=== PATIENT | male | born 1975 | race African-American/Black ===

== ENCOUNTER 2019-08-24 15:28 | Inpatient (IN) ==
[2019-08-24] MEDS ORDERED: MORPHINE 4 MG/1 ML VIAL IV STA (18:55)
[2019-08-24] MEDS ORDERED: hydrALAZINE 20 MG/1 ML VIAL IV STA (18:55)
[2019-08-24] MEDS ORDERED: ONDANSETRON 4 MG/2 ML VIAL IV STA (18:55)
[2019-08-24] MEDS ORDERED: FUROSEMIDE 100 MG/10 ML VIAL IV STA (18:55)
[2019-08-24] MEDS ORDERED: NITROGLYCERIN 2% OINT 1 INCH/GM PACK TOP STA (18:55)
[2019-08-24 19:33] LABS: Basophils % 0.7 % (0.0-0.8); Eosinophils # 0.1 10*3/uL (0.0-0.87); Eosinophils % 1.5 % (0.00-10.9); Hematocrit 27.7 VOL% (42.0-52.0); Immature Granulocytes % 0.3 %; Immature Granulocytes Absolute 0.02 #; Lymphocytes # 0.9 10*3/uL (1.4-4.0); Lymphocytes % 15.7 % (21.2-54.2); Mean Corpuscular HGB Conc 28.9 GM/DL (32-36); Mean Corpuscular Volume 69.1 FL (87-102); Mean Platelet Volume 10.7 FL (9.6-12.0); Monocytes % 10.2 % (1.7-12.7); Neutrophils % 71.6 % (38.7-73.9); Platelet Count 286 T/CUMM (130-400); Red Blood Count 4.01 MC/CUMM (3.8-5.5); Red Cell Distribution Width 20.3 % (9.3-17.3)
[2019-08-24 19:44] LABS: INR 1.2; PT Patient Result 12.7 SECS (9.6-12.2)
[2019-08-24 19:51] LABS: Alanine Aminotransferase 21 U/L (16-61); Albumin 2.8 G/DL (3.4-5.0); Alkaline Phosphatase 103 U/L (45-117); Aspartate Amino Transferase 17 U/L (0-37); Blood Urea Nitrogen 20 MG/DL (7-18); Calcium 8.4 MG/DL (8.5-10.1); Estimated Glom Filtration Rate 96 ML/MIN; Glucose 99 MG/DL (74-106); Osmolality,Calculated 277.7 MOS/KG (273-304); Total Protein 7.3 G/DL (6.4-8.3); Troponin I 0.038 NG/ML (0.00-0.045)
[2019-08-24 20:52] LABS: Apearance,Urine CLEAR (Clear); Bacteria,Urine Occasional /HPF (Few); Bilirubin,Urine Negative (Negative); Blood, Urine Negative (Negative); Glucose,Urine (UA) Negative (Negative); Hyaline Casts,Urine 3 /LPF (0-3); Ketones,Urine Negative (Negative); Mucus,Urine Occasional /LPF (Occasional); Nitrite,Urine Negative (Negative); Protein,Urine Negative; Sperm,Urine Occasional /HPF (Negative); Squamous Epithelial Cell,Urine Occasional /HPF (0-10); Urine Color Straw (Yellow); Urine Specific Gravity 1.006 (1.001-1.035); Urine Urobilinogen < 2.0 EU/DL (0.2-1.0); WBC,Urine 4 /HPF (0-6)
[2019-08-24 20:55] LABS: Barbiturates Screen,Urine Negative (Negative); Benzodiazepines Screen,Urine Negative (Negative); Cannabinoid Screen,Urine Negative (Negative); Opiate Screen,Urine Negative (Negative); Phencyclidine Screen,Urine Negative (Negative)
[2019-08-24] MEDS ORDERED: niCARdipine 25 MG/10 ML VIAL IV ONE (22:01)
[2019-08-24] MEDS: niCARdipine INJ 25 MG in SODIUM CHLORIDE 0.9% 240 ML IV PRN (22:10)
[2019-08-24] MEDS ORDERED: ACETAMINOPHEN 325 MG TABLET PO PRN (23:20)
[2019-08-24] MEDS ORDERED: MAGNESIUM SULF RIDER 2 GM in PREMIX 1 EACH IV PRN (23:20)
[2019-08-24] MEDS ORDERED: ALBUTEROL 2.5 MG/3 ML NEB RESP TX PRN (23:20)
[2019-08-24] MEDS ORDERED: ONDANSETRON 4 MG/2 ML VIAL IV PRN (23:20)
[2019-08-24] MEDS ORDERED: MAGNESIUM SULF RIDER 4 GM in PREMIX 1 EACH IV PRN (23:20)
[2019-08-25] MEDS: niCARdipine INJ 25 MG in SODIUM CHLORIDE 0.9% 240 ML IV PRN (01:41)
[2019-08-25] MEDS ORDERED: niCARdipine INJ 50 MG in SODIUM CHLORIDE 0.9% 480 ML IV PRN (02:07)
[2019-08-25 05:04] LABS: Basophils % 0.6 % (0.0-0.8); Eosinophils # 0.1 10*3/uL (0.0-0.87); Eosinophils % 1.7 % (0.00-10.9); Hematocrit 26.5 VOL% (42.0-52.0); Hemoglobin 7.9 GM/DL (14.0-18.0); Immature Granulocytes % 0.3 %; Immature Granulocytes Absolute 0.02 #; Lymphocytes # 1.1 10*3/uL (1.4-4.0); Lymphocytes % 15.1 % (21.2-54.2); Mean Corpuscular HGB Conc 29.8 GM/DL (32-36); Mean Corpuscular Volume 68.1 FL (87-102); Neutrophils % 70.3 % (38.7-73.9); Platelet Count 310 T/CUMM (130-400); Red Blood Count 3.89 MC/CUMM (3.8-5.5); Red Cell Distribution Width 19.8 % (9.3-17.3); White Blood Count 7.2 T/CUMM (4-12)
[2019-08-25 05:23] LABS: Hypochromasia 1+; Platelet Estimate Adequate; Target Cells Few
[2019-08-25 05:46] LABS: Albumin 2.8 G/DL (3.4-5.0); Bilirubin,Total 1.2 MG/DL (0.2-1.0); Calcium 8.6 MG/DL (8.5-10.1); Ferritin 17.2 ng/ml (26-388); Osmolality,Calculated 278.5 MOS/KG (273-304); Total Protein 7.2 G/DL (6.4-8.3)
[2019-08-25 06:15] LABS: Folate 14.1 NG/ML (5.4-24.0)
[2019-08-25 07:50] LABS: Vitamin B12 513 PG/ML (211-911)
[2019-08-25] MEDS: FUROSEMIDE 40 MG/4 ML VIAL IV SCH ×2 (08:09→15:37)
[2019-08-25] MEDS: PANTOPRAZOLE 40 MG TABLET PO SCH (08:09)
[2019-08-25] MEDS: ISOSORBIDE DINITRATE 20 MG TABLET PO SCH (08:10)
[2019-08-25] MEDS: POTASSIUM CHLORIDE 20 MEQ TABLET PO SCH ×3 (09:20→21:25)
[2019-08-25 10:15] LABS: Hemoglobin A1 (Alkaline) 98.3 % (96.5-98.5); Hemoglobin A2 (Alkaline) 1.7 % (1.5-3.5)
[2019-08-25] MEDS: lisinopriL 10 MG TABLET PO SCH (10:28)
[2019-08-25 11:51] LABS: Sedimentation Rate-Westergren 28 MM/HR (0-15)
[2019-08-25] MEDS ORDERED: POTASSIUM CHLORIDE RIDER 10 MEQ in PREMIX 1 EACH IV PRN (12:36)
[2019-08-25] MEDS: ASPIRIN EC 81 MG TABLET PO SCH (13:18)
[2019-08-25] MEDS: CLOPIDOGREL 75 MG TABLET PO SCH (13:18)
[2019-08-26] MEDS ORDERED: hydrALAZINE 20 MG/1 ML VIAL IV PRN (00:56)
[2019-08-26] MEDS: hydrALAZINE 20 MG/1 ML VIAL IV PRN ×5 (01:26→18:24)
[2019-08-26 04:29] LABS: Basophils # 0.1 10*3/uL (0.0-0.2); Basophils % 0.9 % (0.0-0.8); Eosinophils # 0.1 10*3/uL (0.0-0.87); Eosinophils % 2.4 % (0.00-10.9); Hematocrit 28.3 VOL% (42.0-52.0); Hemoglobin 8.2 GM/DL (14.0-18.0); Immature Granulocytes % 0.4 %; Immature Granulocytes Absolute 0.02 #; Lymphocytes # 1.3 10*3/uL (1.4-4.0); Lymphocytes % 23.8 % (21.2-54.2); Mean Corpuscular Volume 69.2 FL (87-102); Monocytes % 12.6 % (1.7-12.7); Neutrophils % 59.9 % (38.7-73.9); Platelet Count 306 T/CUMM (130-400); Red Blood Count 4.09 MC/CUMM (3.8-5.5); Red Cell Distribution Width 20.5 % (9.3-17.3); White Blood Count 5.5 T/CUMM (4-12)
[2019-08-26 04:44] LABS: Calcium 8.9 MG/DL (8.5-10.1); Osmolality,Calculated 277.5 MOS/KG (273-304)
[2019-08-26 04:51] LABS: Risk Ratio 2.16; VLDL CHOLESTEROL 8.6 MG/DL
[2019-08-26] MEDS ORDERED: diphenhydrAMINE CAP 25 MG CAPSULE PO ONE (06:00)
[2019-08-26] MEDS ORDERED: DIAZEPAM 5 MG TABLET PO ONE (06:00)
[2019-08-26] MEDS ORDERED: HEPARIN/NACL 0.9% 2 UNITS/ML 1,000 ML IV ONE (06:38)
[2019-08-26] MEDS: SODIUM CHLORIDE 0.9% 1,000 ML IV SCH ×3 (06:40→23:03)
[2019-08-26] MEDS ORDERED: HEPARIN/NACL 0.9% 2 UNITS/ML 500 ML IV ONE (06:46)
[2019-08-26] MEDS ORDERED: LIDOCAINE 1% 20 ML VIAL ONE (06:52)
[2019-08-26] MEDS ORDERED: MIDAZOLAM 2 MG/2 ML VIAL ONE (06:53)
[2019-08-26] MEDS ORDERED: fentaNYL 100 MCG/2 ML VIAL ONE (06:53)
[2019-08-26] MEDS ORDERED: NITROGLYCERIN 2% OINT 1 INCH/GM PACK TOP ONE (07:11)
[2019-08-26] MEDS ORDERED: hydrALAZINE 20 MG/1 ML VIAL ONE (07:18)
[2019-08-26] MEDS ORDERED: cloNIDine 0.1 MG TABLET ONE (07:23)
[2019-08-26 07:42] LABS: % Iron Saturation 4.3 % (18-50); Ferritin 20.2 ng/ml (26-388)
[2019-08-26] MEDS ORDERED: ENOXAPARIN 40 MG/0.4 ML SYRINGE SUBCUT SCH (08:00)
[2019-08-26] MEDS: ASPIRIN EC 81 MG TABLET PO SCH (08:36)
[2019-08-26] MEDS: ISOSORBIDE DINITRATE 20 MG TABLET PO SCH (08:36)
[2019-08-26] MEDS: PANTOPRAZOLE 40 MG TABLET PO SCH (08:36)
[2019-08-26] MEDS: FUROSEMIDE 40 MG/4 ML VIAL IV SCH ×2 (08:36→15:46)
[2019-08-26] MEDS: lisinopriL 10 MG TABLET PO SCH (08:37)
[2019-08-26] MEDS: MORPHINE 4 MG/1 ML VIAL IV PRN ×4 (08:37→18:02)
[2019-08-26] MEDS: CLOPIDOGREL 75 MG TABLET PO SCH (08:37)
[2019-08-26] MEDS: LOSARTAN 50 MG TABLET PO SCH (09:56)
[2019-08-27] MEDS: ENOXAPARIN 40 MG/0.4 ML SYRINGE SUBCUT SCH (02:45)
[2019-08-27] MEDS: hydrALAZINE 20 MG/1 ML VIAL IV PRN (04:08)
[2019-08-27 05:37] LABS: Basophils % 0.8 % (0.0-0.8); Eosinophils # 0.1 10*3/uL (0.0-0.87); Eosinophils % 2.7 % (0.00-10.9); Hematocrit 27.6 VOL% (42.0-52.0); Hemoglobin 8.1 GM/DL (14.0-18.0); Immature Granulocytes % 0.2 %; Immature Granulocytes Absolute 0.01 #; Lymphocytes # 1.1 10*3/uL (1.4-4.0); Lymphocytes % 20.7 % (21.2-54.2); Mean Corpuscular HGB Conc 29.3 GM/DL (32-36); Mean Platelet Volume 10.7 FL (9.6-12.0); Monocytes % 13.3 % (1.7-12.7); Neutrophils % 62.3 % (38.7-73.9); Platelet Count 296 T/CUMM (130-400); Red Cell Distribution Width 20.2 % (9.3-17.3); White Blood Count 5.1 T/CUMM (4-12)
[2019-08-27 05:56] LABS: Hypochromasia 2+; Platelet Estimate Adequate
[2019-08-27 06:28] LABS: Calcium 8.5 MG/DL (8.5-10.1); Osmolality,Calculated 274.8 MOS/KG (273-304)
[2019-08-27] MEDS ORDERED: amLODIPine 5 MG TABLET PO SCH (09:00)
[2019-08-27] MEDS: ISOSORBIDE DINITRATE 20 MG TABLET PO SCH (09:04)
[2019-08-27] MEDS: LOSARTAN 50 MG TABLET PO SCH (09:04)
[2019-08-27] MEDS: ASPIRIN EC 81 MG TABLET PO SCH (09:04)
[2019-08-27] MEDS: PANTOPRAZOLE 40 MG TABLET PO SCH (09:06)
[2019-08-27] MEDS: CLOPIDOGREL 75 MG TABLET PO SCH (09:06)
[2019-08-27] MEDS: FUROSEMIDE 40 MG/4 ML VIAL IV SCH ×2 (09:07→15:34)
[2019-08-27] MEDS: SODIUM CHLORIDE 0.9% 1,000 ML IV SCH ×2 (09:14→15:39)
[2019-08-27] MEDS: FERROUS SULFATE 325 MG TABLET PO SCH (12:17)
[2019-08-27] MEDS: cloNIDine 0.1 MG TABLET PO SCH ×2 (15:29→21:43)
[2019-08-28] MEDS: ENOXAPARIN 40 MG/0.4 ML SYRINGE SUBCUT SCH (00:56)
[2019-08-28 05:19] LABS: Basophils % 0.9 % (0.0-0.8); Eosinophils # 0.2 10*3/uL (0.0-0.87); Eosinophils % 3.5 % (0.00-10.9); Hematocrit 26.1 VOL% (42.0-52.0); Hemoglobin 7.7 GM/DL (14.0-18.0); Lymphocytes # 1.1 10*3/uL (1.4-4.0); Lymphocytes % 24.1 % (21.2-54.2); Mean Corpuscular HGB Conc 29.5 GM/DL (32-36); Mean Platelet Volume 10.6 FL (9.6-12.0); Monocytes % 13.6 % (1.7-12.7); Neutrophils % 57.9 % (38.7-73.9); Platelet Count 260 T/CUMM (130-400); Red Blood Count 3.78 MC/CUMM (3.8-5.5); White Blood Count 4.6 T/CUMM (4-12)
[2019-08-28 05:52] LABS: Calcium 8.6 MG/DL (8.5-10.1); Osmolality,Calculated 269.2 MOS/KG (273-304)
[2019-08-28] MEDS: hydrALAZINE 20 MG/1 ML VIAL IV PRN (07:54)
[2019-08-28] MEDS: FUROSEMIDE 40 MG/4 ML VIAL IV SCH ×2 (08:01→15:17)
[2019-08-28] MEDS: ISOSORBIDE DINITRATE 20 MG TABLET PO SCH (09:24)
[2019-08-28] MEDS: amLODIPine 10 MG TABLET PO SCH (09:25)
[2019-08-28] MEDS: PANTOPRAZOLE 40 MG TABLET PO SCH (09:25)
[2019-08-28] MEDS: LOSARTAN 50 MG TABLET PO SCH (09:25)
[2019-08-28] MEDS: FERROUS SULFATE 325 MG TABLET PO SCH (09:25)
[2019-08-28] MEDS: cloNIDine 0.1 MG TABLET PO SCH ×3 (09:25→20:52)
[2019-08-28] MEDS: ASPIRIN EC 81 MG TABLET PO SCH (09:26)
[2019-08-28] MEDS: POTASSIUM CHLORIDE 20 MEQ TABLET PO PRN ×2 (09:26→13:13)
[2019-08-28] MEDS: carvediloL 12.5 MG TABLET PO SCH ×2 (10:24→20:52)
[2019-08-28] MEDS ORDERED: POTASSIUM CHLORIDE 20 MEQ TABLET PO ONE (15:01)
[2019-08-28] MEDS ORDERED: SODIUM CHLORIDE 0.9% 1,000 ML IV PRN ×2 (15:03→16:07)
[2019-08-29 06:19] LABS: Basophils # 0.1 10*3/uL (0.0-0.2); Basophils % 1.1 % (0.0-0.8); Eosinophils # 0.1 10*3/uL (0.0-0.87); Eosinophils % 2.6 % (0.00-10.9); Hemoglobin 9.2 GM/DL (14.0-18.0); Immature Granulocytes % 0.2 %; Immature Granulocytes Absolute 0.01 #; Lymphocytes # 1.2 10*3/uL (1.4-4.0); Lymphocytes % 21.9 % (21.2-54.2); Mean Corpuscular HGB Conc 29.7 GM/DL (32-36); Mean Corpuscular Volume 71.6 FL (87-102); Mean Platelet Volume 11.1 FL (9.6-12.0); Monocytes % 12.8 % (1.7-12.7); Neutrophils % 61.4 % (38.7-73.9); Platelet Count 274 T/CUMM (130-400); Red Blood Count 4.33 MC/CUMM (3.8-5.5); Red Cell Distribution Width 21.6 % (9.3-17.3); White Blood Count 5.5 T/CUMM (4-12)
[2019-08-29 07:13] LABS: Calcium 8.7 MG/DL (8.5-10.1); Osmolality,Calculated 275.8 MOS/KG (273-304)
[2019-08-29 08:20] VITALS: BP 166/101
[2019-08-29] MEDS: amLODIPine 10 MG TABLET PO SCH (08:30)
[2019-08-29] MEDS: LOSARTAN 50 MG TABLET PO SCH (08:32)
[2019-08-29] MEDS: FERROUS SULFATE 325 MG TABLET PO SCH (08:32)
[2019-08-29] MEDS: carvediloL 12.5 MG TABLET PO SCH (08:34)
[2019-08-29] MEDS: POTASSIUM CHLORIDE 20 MEQ TABLET PO PRN (08:34)
[2019-08-29] MEDS: ASPIRIN EC 81 MG TABLET PO SCH (08:34)
[2019-08-29] MEDS: ISOSORBIDE DINITRATE 20 MG TABLET PO SCH (08:34)
[2019-08-29] MEDS: PANTOPRAZOLE 40 MG TABLET PO SCH (08:35)
[2019-08-29] MEDS: cloNIDine 0.1 MG TABLET PO SCH (08:35)
[2019-08-29] MEDS: ENOXAPARIN 40 MG/0.4 ML SYRINGE SUBCUT SCH (08:36)
[2019-08-29] MEDS: FUROSEMIDE 40 MG/4 ML VIAL IV SCH (08:37)
[2019-08-29 08:38] LABS: Hypochromasia 4+; Target Cells Few
[2019-08-29 08:39] LABS: Microcytosis 2+; Platelet Estimate Normal; Schistocytes Slight
[2019-08-29] MEDS: hydrALAZINE 20 MG/1 ML VIAL IV PRN (08:44)
[2019-08-29] MEDS ORDERED: MULTIVITAMIN (CENTRUM) TABLET PO SCH (10:30)
[2019-08-29] MEDS ORDERED: FOLIC ACID 1 MG TABLET PO SCH (10:30)
[2019-08-29] MEDS ORDERED: THIAMINE 100 MG TABLET PO SCH (10:30)
[2019-09-10] MEDS ORDERED: BISACODYL 5 MG TABLET PO ONE (12:00)
[2019-09-10] MEDS ORDERED: POLYETHYLENE GLYCOL POWDER 255 GM BOTTLE PO ONE (18:00)
== END 2019-08-29 12:00 | disposition home or self-care (01) | DRG 287 ==
LOC: N.ED 15:28 → SUATTDRO 23:20 → N.EDINP 23:20 → N.ICU 08-25 01:37 → N.TELEN 08-26 19:28
PROVIDERS: ADMIT Internal Medicine; ATTEND Internal Medicine